=== PATIENT | female | born 1955 | race Caucasian/White ===

== ENCOUNTER 2017-12-10 14:16 | Emergency (ER) | payer BC ==
--- NOTE | 2017-12-10 15:22 | EDPHY ---
H & P Stated Complaint: tachycardia Time Seen by Provider: 12/10/17 15:22 - Personal History Current Tetanus Diphtheria and Acellular Pertussis (TDAP): Yes - Medical/Surgical History Hx Asthma: No Hx Chronic Respiratory Disease: No Hx Diabetes: Yes Hx Cardiac Disease: Yes Hx Renal Disease: No Hx Cirrhosis: No Hx Alcoholism: No Hx HIV/AIDS: No Hx Splenectomy or Spleen Trauma: No Other PMH: tachycardia, DM 1, ABlation - Social History Smoking Status: Former smoker Constitutional: Initial Vital Signs Temperature (C) 36.8 C 12/10/17 14:21 Heart Rate 90 12/10/17 14:21 Respiratory Rate 20 12/10/17 14:21 Blood Pressure 150/97 H 12/10/17 14:21 O2 Sat (%) 97 12/10/17 14:21 O2 Delivery Mode Room Air Allergies/Adverse Reactions: azithromycin Allergy (Verified 12/10/17 14:20) Home Medications: Medication Instructions Recorded Diltiazem 12/10/17 Insulin Aspart Novolog 70/30 12/10/17 Lantus 12/10/17 Medical Decision Making ED Course/Re-evaluation: CHIEF COMPLAINT: Rapid heart rate HISTORY OF PRESENT ILLNESS: The patient is a 62 y/o female with a history of SVT which required an ablation complaining of tachycardia today. For the past 17 years she has had increasing, intermittent episodes of tachycardia. When she presents to the emergency department her heart rate is usually in the 200's and they give her adenosine, which alleviates her symptoms. In September, her most recent episode of tachycardia, vagal maneuvers did not relieve her symptoms and she had to receive adenosine again. On November 01, 2017, 1 month ago, she had an ablation and was asymptomatic. She was on Metoprolol but is now on Diltiazem. However, she recently flew to [place] to visit her daughter. Today while shopping she felt her heart rate increase like prior episodes of tachycardia. She checked her heart rate and noticed that it reached 155bpm. She denies feeling dizzy, lightheaded or as if she was going to pass out. She decided to present to the emergency department and took half a Lorazepam while on the drive over. Denies headache, chest pain, shortness of breath, abdominal pain, urinary or bowel complaints, numbness, paresthesias, fevers. She is followed by a talent sourcer in [place]. REVIEW OF SYSTEMS: A 10 point review of systems was performed and is negative with the exception of the elements mentioned in the history of present illness. PHYSICAL EXAM: HR, BP, O2 Sat, RR. Temp noted General Appearance: Alert, well hydrated, appropriate, and non-toxic appearing. Head: Atraumatic without scalp tenderness or obvious injury Eyes: Pupils equal, round, reactive to light and accommodation, EOMI, no trauma , no injection. Ears: Clear bilaterally, no perforation, normal landmarks Nose: Atraumatic, no rhinorrhea, clear. Throat: There is no erythema or exudates, no lesions, normal tonsils, mucus membranes moist. Neck: Supple, 2+ carotid upstroke, nontender, no lymphadenopathy. Respiratory: No retractions, no distress, no wheezes, and no accessory muscle use. Lungs are clear to auscultation bilaterally. Cardiovascular: Regular rate and rhythm, no murmurs, rubs, or gallops. Bilateral carotid, radial, dorsalis pedis, and posterior tibial pulses intact. Good capillary refill all extremities. Gastrointestinal: Abdomen is soft, nontender, non-distended, no masses, no rebound, no guarding, no peritoneal signs. Musculoskeletal: Normal active ROM of all extremities, atraumatic. Neurological: Alert, appropriate, and interactive. The patient has normal DTRs and non-focal cranial nerves, motor, sensory, and cerebellar exam. Skin: No rashes, good turgor, no nodules on palpation. 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 See hard copy and/or "tracemaster" electronic copy for interpretation. DIFFERENTIAL DIAGNOSIS: The differential diagnosis for the patient's tachycardia included but was not limited to various causes of sinus tachycardia such as dehydration and medicines , SVT, atrial flutter, atrial fibrillation, pulmonary causes. MEDICAL DECISION MAKING: The patient is a 62 y/o female with a history of SVT which required an ablation complaining of tachycardia going to as high as 155bpm today. On exam she is not tachycardic and has a normal physical exam. Labs and EKG ordered; imaging studies are not indicated at this time. 1558: I interpreted patient's EKG as sinus rhythm with a rate of 87. 1609: Patient's troponin is normal 1640: Reassessed patient and discussed normal labs and EKG findings. I have prescribed her Toprol XL if her heart rate increases to 150 beats per minute. I have advised her to follow up with her talent sourcer when she returns home. Return precautions provided; patient is comfortable with this plan. - Data Points Laboratory Results: 12/10/17 12/10/17 16:14 15:53 POC Hgb 14.6 gm/dL gm/dL (12.6-16.3) POC Hct 43 % % (38-47) POC Sodium 142 mEq/L mEq/L (135-145) POC Potassium 4.3 mEq/L mEq/L (3.3-5.0) POC Chloride 106 mEq/L mEq/L (97-110) POC BUN 25 mg/dL H mg/dL (7-23) POC Creatinine 1.2 mg/dL H mg/dL (0.6-1.0) POC Glucose 273 mg/dL H mg/dL (70-100) POC Troponin I 0.00 ng/mL ng/mL (0.00-0.08) Point of Care Test Results: Chemistry 12/10/17 12/10/17 16:14 15:53 POC Sodium 142 mEq/L mEq/L (135-145) POC Potassium 4.3 mEq/L mEq/L (3.3-5.0) POC Chloride 106 mEq/L mEq/L (97-110) POC BUN 25 mg/dL H mg/dL (7-23) POC Creatinine 1.2 mg/dL H mg/dL (0.6-1.0) POC Glucose 273 mg/dL H mg/dL (70-100) POC Troponin I 0.00 ng/mL ng/mL (0.00-0.08) ISTAT H&H 12/10/17 16:14 POC Hgb 14.6 gm/dL gm/dL (12.6-16.3) POC Hct 43 % % (38-47) Departure - Departure Disposition: Home, Routine, Self-Care Clinical Impression: Tachycardia Condition: Good Instructions: Tachycardia (ED) Additional Instructions: 1. Take Toprol XL as prescribed. Take 12.5mg if you develop tachycardia with a rate of 150 beats per minute. 2. Follow-up with your primary doctor within 72 hours. 3. Return to the Emergency Department for fever, chest pain, shortness of breath , increasing pain or other worsening of condition. 4. Follow up with a talent sourcer for further testing, as soon as possible, within one week. We would be happy to reevaluate you and observe you in the hospital at any time. Referrals: GIANA GOLDBERG [Other] - As per Instructions Report Scribed for: Sarbjit Jefferson Report Scribed by: Shobha Celis Date of Report: 12/10/17 Time of Report: 15:31
[2017-12-10 17:02] VITALS: BP 122/86
--- NOTE | 2017-12-15 06:45 | CPEKG ---
Test Reason : OPEN Blood Pressure : / mmHG Vent. Rate : 087 BPM Atrial Rate : 086 BPM P-R Int : 152 ms QRS Dur : 074 ms QT Int : 377 ms P-R-T Axes : 086 060 050 degrees QTc Int : 454 ms Sinus rhythm Confirmed by Sarbjit Jefferson ([id number]) on 12/15/2017 6:45:44 AM Referred By: Confirmed By:Sarbjit Jefferson
== END 2017-12-10 17:00 | disposition home or self-care (01) ==
DX: R00.0 Tachycardia, unspecified (principal); Z87.891 Personal history of nicotine dependence; Z86.79 Personal history of other diseases of the circulatory system
CPT/HCPCS: 82435-PO; 82565-PO; 82947-PO; 84132-PO; 84295-PO; 84484-PO; 84520-PO; 85014-PO